=== PATIENT | male | born 1980 | race Caucasian/White ===

== ENCOUNTER 2017-09-27 00:22 | Emergency (ER) | payer SELFPAY ==
[2017-09-27] MEDS ORDERED: ASPIRIN PO ONE (01:26)
[2017-09-27 02:12] LABS: Basophils % (Auto) 0.3 % (0.0-1.8); Eosinophils # (Auto) 0.3 K/mm3 (0.0-0.4); Eosinophils % (Auto) 5.3 % (0.0-4.3); Hematocrit 42.5 % (35.5-45.6); Hemoglobin 14.6 gm/dl (11.8-15.2); Lymphocytes # (Auto) 2.6 K/mm3 (1.2-5.4); Mean Corpuscular HGB Conc 34 % (32-34); Mean Corpuscular Hemoglobin 30 pg (28-32); Mean Corpuscular Volume 88 fl (84-94); Monocytes # (Auto) 0.4 K/mm3 (0.0-0.8); Platelet Count 228 K/mm3 (140-440); Red Blood Count 4.83 M/mm3 (3.65-5.03)
[2017-09-27 02:31] LABS: BUN/Creatinine Ratio 20; Blood Urea Nitrogen 14 mg/dL (9-20); Calcium 8.8 mg/dL (8.4-10.2); Hemolysis Index 19
[2017-09-27 02:36] VITALS: BP 135/77
--- NOTE | 2017-09-27 03:16 | Emergency Department Report ---
ED General Adult HPI - General Chief complaint: Chest Pain Stated complaint: CHEST PAIN Time Seen by Provider: 09/27/17 03:03 Source: patient, family Mode of arrival: Ambulatory Limitations: No Limitations - History of Present Illness Initial comments: 37-year-old male diabetic states someone stole his insulin he is here for evaluation of his blood sugar. He also has been having some intermittent chest discomfort off and on for several days. He is not a good historian. He says it doesn't seem to be exertional. He does take walks without chest pain. He has no shortness of breath. No calf pain or swelling. No tearing pain in the back. However he is stating he does have bronchitis with some intermittent cough with a little bit chest pain with breathing "making it better. " No abdominal pain no drug or alcohol use not tobacco. -: Gradual, unknown Location: chest Severity scale (0 -10): 5 Quality: aching Consistency: intermittent, now resolved Associated Symptoms: chest pain, cough. denies: confusion, diaphoresis, fever/ chills, headaches, loss of appetite, malaise, nausea/vomiting, rash, seizure, shortness of breath, syncope, weakness - Related Data Home Medications Medication Instructions Recorded Confirmed Last Taken Lantus 60 units SQ HS 09/27/17 09/27/17 Unknown NovoLOG 100 UNITS/ML VIAL 22 units SQ TID 09/27/17 09/27/17 Unknown Previous Rx's Medication Instructions Recorded Last Taken Type Doxycycline [Vibramycin CAP] 100 mg PO Q12HR #14 capsule 09/27/17 Unknown Rx Insulin Glargine,Hum.rec.anlog 60 unit SQ DAILY #1 vial 09/27/17 Unknown Rx [Lantus] Allergies Allergy/AdvReac Type Severity Reaction Status Date / Time No Known Allergies Allergy Verified 09/27/17 03:07 ED Review of Systems ROS: Stated complaint: CHEST PAIN Other details as noted in HPI Comment: All other systems reviewed and negative Constitutional: malaise. denies: diaphoresis, fever Respiratory: cough, wheezing. denies: orthopnea, shortness of breath, SOB with exertion, SOB at rest, stridor Cardiovascular: chest pain. denies: palpitations, dyspnea on exertion, orthopnea, edema, syncope, paroxysmal nocturnal dyspnea Gastrointestinal: denies: abdominal pain, nausea, vomiting, diarrhea, constipation, hematemesis, melena, hematochezia Musculoskeletal: denies: joint swelling, arthralgia, myalgia Skin: denies: change in color Neurological: denies: headache, weakness, numbness, paresthesias, confusion, abnormal gait Psychiatric: denies: auditory hallucinations, visual hallucinations ED Past Medical Hx - Past Medical History Hx Diabetes: Yes Additional medical history: MORBID OBESITY - Surgical History Past Surgical History?: No - Social History Smoking Status: Never Smoker Substance Use Type: Marijuana - Medications Home Medications: Home Medications Medication Instructions Recorded Confirmed Last Taken Type Doxycycline [Vibramycin CAP] 100 mg PO Q12HR #14 capsule 09/27/17 Unknown Rx Insulin Glargine,Hum.rec.anlog 60 unit SQ DAILY #1 vial 09/27/17 Unknown Rx [Lantus] Lantus 60 units SQ HS 09/27/17 09/27/17 Unknown History NovoLOG 100 UNITS/ML VIAL 22 units SQ TID 09/27/17 09/27/17 Unknown History ED Physical Exam - General Limitations: No Limitations General appearance: alert, other (sleepy easily arousable sleep apnea patient) - Head Head exam: Present: atraumatic, normocephalic - Eye Eye exam: Present: normal appearance, PERRL, EOMI - ENT ENT exam: Present: normal exam, other (no stridor no drooling good airway) - Neck Neck exam: Present: normal inspection. Absent: tenderness, meningismus - Respiratory Respiratory exam: Present: rhonchi. Absent: respiratory distress, chest wall tenderness, accessory muscle use, decreased breath sounds, prolonged expiratory - Cardiovascular Cardiovascular Exam: Present: regular rate, normal rhythm, normal heart sounds. Absent: bradycardia, tachycardia, irregular rhythm, rubs, gallop - GI/Abdominal GI/Abdominal exam: Present: soft. Absent: distended, tenderness, guarding, rebound, rigid, mass, pulsatile mass - Extremities Exam Extremities exam: Present: normal capillary refill. Absent: pedal edema, joint swelling, calf tenderness - Back Exam Back exam: Present: normal inspection. Absent: tenderness, CVA tenderness (R), CVA tenderness (L), muscle spasm, paraspinal tenderness, vertebral tenderness, rash noted - Neurological Exam Neurological exam: Present: alert, oriented X3, CN II-XII intact. Absent: motor sensory deficit - Psychiatric Psychiatric exam: Present: anxious - Skin Skin exam: Absent: rash, cyanosis, diaphoretic, erythema, urticaria, vesicles, petechiae ED Course Vital Signs 09/27/17 09/27/17 09/27/17 00:48 01:19 02:35 Temperature 98.4 F 98.4 F 98.2 F Pulse Rate 83 85 76 Respiratory 18 16 18 Rate Blood Pressure 149/93 149/93 Blood Pressure 135/77 [Left] O2 Sat by Pulse 96 97 96 Oximetry ED Medical Decision Making - Lab Data Result diagrams: 09/27/17 01:55 09/27/17 01:55 - EKG Data -: EKG Interpreted by Or EKG shows normal: sinus rhythm Rate: normal - EKG Data Interpretation: other (no acute ischemic change) - Radiology Data Radiology results: report reviewed - Medical Decision Making Symptoms are atypical. He does seem to have a musculoskeletal component to it. He also does seem to have a URI bronchitis component. No evidence of DVT PE at this time he is perk negative, chest x-ray is negative troponin is negative at 2 days of symptoms. EKG is nondiagnostic. Pulses are equal bilaterally he was observed in the ED without further symptoms and was felt to be stable for outpatient follow-up I did inform him and he did verbalize understanding that he will need close outpatient follow-up for likely stress testing if he continues to have symptoms given his chronic medical conditions and he did verbalize understanding that he will do this however there is no evidence of ACS at this time no evidence of any other acute emergent process that would warrant any further workup or admission at this time he is therefore stable for outpatient follow-up he did have mildly elevated glucose. But he is not acidotic. Normal anion gap normal co2 in the serum no evidence of ketosis. He is therefore stable for refill on his Lantus till he can get back to his regular doctor Critical care attestation.: If time is entered above; I have spent that time in minutes in the direct care of this critically ill patient, excluding procedure time. ED Disposition Clinical Impression: Atypical chest pain, Bronchitis, Poorly controlled diabetes mellitus Disposition: DC- TO HOME OR SELFCARE Is pt being admited?: No Condition: Stable Instructions: Chronic Bronchitis (ED), Chest Pain (ED), Acute Bronchitis (ED), Diabetes Mellitus Type 2 in Adults (ED) Additional Instructions: See the doctor listed return if new alarming symptoms or call 911 Prescriptions: Doxycycline [Vibramycin CAP] 100 mg PO Q12HR #14 capsule Insulin Glargine,Hum.rec.anlog [Lantus] 60 unit SQ DAILY #1 vial
--- NOTE | 2017-09-27 03:50 | XRay Report ---
FINAL REPORT EXAM: XR CHEST ROUTINE 2V HISTORY: wheezes TECHNIQUE: PA and lateral views of the chest were submitted. FINDINGS: Heart size and mediastinum appear normal. The lungs are clear. Pleural fluid is not seen. The bones and soft tissues do not show any acute changes. IMPRESSION: No active chest disease.
== END 2017-09-27 05:37 | disposition home or self-care (01) ==
LOC: ED 00:22
DX: J40 Bronchitis, not specified as acute or chronic (principal); E11.65 Type 2 diabetes mellitus with hyperglycemia; F12.10 Cannabis abuse, uncomplicated; E66.01 Morbid (severe) obesity due to excess calories; Z68.43 Body mass index [BMI] 50.0-59.9, adult
CPT/HCPCS: 36415; 71046; 80048; 83690; 84484; 85025; 93005; 93010